=== PATIENT | female | born 2000 | race Two or more races ===

== ENCOUNTER 2024-09-27 12:09 | Emergency (ER) | payer OTHER ==
[~2024-09-27] VITALS: Ht 167.6 cm; Wt 81.2 kg
[2024-09-27] MEDS ORDERED: LAMICTAL150 M1 PO (13:00)
[2024-09-27 13:01] VITALS: BP 100/66; O2SAT 97
[2024-09-27] MEDS ORDERED: CLONAZEPAM1 MG PO (13:01)
[2024-09-27] MEDS ORDERED: ZYPREXA ZYDIS10 MG PO (13:01)
[2024-09-27 16:53] LABS: HEMATOCRIT 40.8 % (36.0-45.00); HEMOGLOBIN 13.8 g/dL (12.0-15.00); MEAN CELL VOLUME 84.6 fL (80.00-100.00); MEAN CORPUSCULAR HEMOGLOBIN 28.6 pg (27.00-32.0); MEAN CORPUSCULAR HGB CONC 33.8 g/dl (32.0-36.0); PLATELET COUNT 222 K/uL (150-450); RED BLOOD COUNT 4.82 M/uL (4.00-6.00); RED CELL DISTRIBUTION WIDTH 12.7 % (11.5-14.5)
[2024-09-27] MEDS ORDERED: OSEL75CA PO (17:53)
[2024-09-27] MEDS ORDERED: GILTUSS COUGH-118 M1 PO (17:53)
== END 2024-09-27 18:46 | disposition home or self-care (01) ==
LOC: ER 12:11
PROVIDERS: Preventive Medicine Public Health & General Preventive Medicine
DX: J10.1 Influenza due to other identified influenza virus with other respiratory manifestations (principal); Z20.822 Contact with and (suspected) exposure to COVID-19